=== PATIENT | female | born 1955 ===

== ENCOUNTER 2017-05-06 06:31 | Day surgery (SDC) | payer BC ==
[2017-04-29 09:47] VITALS: BMI 26.6
[2017-05-06] MEDS ORDERED: ceFAZolin IV 2 gm in Dextrose 1 GM/50 ML BAG IVPB ONE (08:03)
[2017-05-06] MEDS ORDERED: Midazolam 2 MG/2 ML VIAL ONE (08:20)
[2017-05-06] MEDS ORDERED: Propofol 10 mg/ml Inj (20 ML) ONE (08:20)
[2017-05-06] MEDS ORDERED: Rocuronium 10 mg/ml (5 ml) ONE (09:48)
[2017-05-06] MEDS ORDERED: Lactated Ringer's 1,000 ML IV ONE ×4 (09:55→14:30)
[2017-05-06] MEDS ORDERED: Phenylephrine 10 mg/ml Inj ONE (10:23)
[2017-05-06] MEDS ORDERED: ePHEDrine 50 mg/ml Inj ONE (10:23)
[2017-05-06] MEDS ORDERED: Rocuronium 10 mg/ml (10 ml) ONE (10:37)
[2017-05-06] MEDS ORDERED: Morphine 4 MG/ML VIAL ONE (11:22)
[2017-05-06] MEDS ORDERED: HYDROmorphone 0.5 mg/0.5 ml ISec IVP PRN (13:34)
--- NOTE | 2017-05-06 14:24 | RAD ---
PROCEDURE: Intraoperative Fluoroscopy. HISTORY: LT HIP ARTHROSCOPIC labral REPAIR FINDINGS: Fluoroscopic assistance was provided for left hip arthroscopic labral repair. Please refer to the operative report from Dr. MYRICK
[2017-05-06 15:35] VITALS: RESP 16
[2017-05-06 19:13] VITALS: BP 103/59; PULSE 57; TEMP 97.2; O2SAT 100
--- NOTE | 2017-05-06 22:06 | PCM.SURG1 ---
Surgeon's Initial Post Op Note - Surgeon's Notes Surgeon: Jaya Cee MD Computer Meteorologist: Joby Hui PA-C Type of Anesthesia: General Endo Pre-Operative Diagnosis: Left hip #1 labral tear. #2 synovitis. #3 greater trochanteric bursitis. #4 external snapping. #5 possible abductor tear Operative Findings: Left hip #1 labral tear (complex w/ area of deficient labrum anterior). #2 synovitis & hypertrophic capsulitis. #3 greater trochanteric bursitis. #4 external snapping/ITB tightness. #5 partial/stable abductor tear w/ tendonopathy Post-Operative Diagnosis: Left hip #1 labral tear (complex w/ area of deficient labrum anterior). #2 synovitis & hypertrophic capsulitis. #3 greater trochanteric bursitis. #4 external snapping/ITB tightness. #5 partial/stable abductor tear w/ tendonopathy Operation Performed: Left hip #1 Arthroscopic Labral repair (w/debridement). # 2 Arthroscopic synovectomy/capsulectomy/debridement. #3 Endoscopic greater trochanteric bursectomy. #4 Endoscopic ITB release. #5 Endoscopic evaluation of abductor tendons Specimen/Specimens Removed: specimen= none. complications= none. Implants= Arthrex 2.9 mm biocomposite push lock anchors x2, labral tape Estimated Blood Loss: EBL {In ML}: 3 Blood Products Given: N/A Drains Used: No Drains Post-Op Condition: Good Date of Surgery/Procedure: 05/06/17 Time of Surgery/Procedure: 14:00
--- NOTE | 2017-05-07 07:55 | OP ---
PROCEDURE DATE: 05/06/2017 PREOPERATIVE DIAGNOSES: Left hip: 1. Labral tear. 2. Synovitis. 3. Greater trochanteric bursitis. 4. External snapping/tight iliotibial band. 5. Possible abductor tear. POSTOPERATIVE DIAGNOSES: Left hip: 1. Labral tear (complex tear with a small area of deficient labrum anteriorly). 2. Synovitis and hypertrophic capsulitis. 3. Greater trochanteric bursitis. 4. External snapping/iliotibial band tightness. 5. Partial/stable abductor tear with tendinopathy. PROCEDURE: Left hip: 1. Arthroscopic labral repair (with concomitant debridement). 2. Arthroscopic synovectomy/capsulectomy/debridement. 3. Endoscopic greater trochanteric bursectomy. 4. Endoscopic iliotibial band release. 5. Endoscopic evaluation of abductor tendon insertion. SURGEON: Jaya Cee MD HABILITATION SPECIALIST: Joby Hui PA-C JUSTIFICATION FOR HABILITATION SPECIALIST: Joby Hui is a certified physician music library assistant whose skilled surgical services was an absolute necessity for successful completion of the procedure. He provided skilled surgical assistance with positioning of the patient, positioning of extremity, management of the surgical hendrickson, placement in hip distractor table and securing the patient safely as well as applying hip distraction safely, management of orthoscopic equipment, facilitating access to the hip joint, arthroscopic labral repair, arthroscopic debridement and capsulectomy, endoscopic evaluation of the abductor and iliotibial band release, wound closure. Joby Hui was present for the entire case and was an absolute necessity for successful completion of the procedure. TYPE OF ANESTHESIA: General endotracheal anesthesia. COMPLICATIONS: None. SPECIMENS: None. DRAINS: None. ESTIMATED BLOOD LOSS: 3 mL IMPLANTS: Arthrex 2.9 mm biocomposite PushLock anchors x2 for labral repair as well as LabralTape. DISPOSITION: The patient was extubated in satisfactory and stable condition and tolerated the procedure well. INDICATIONS FOR SURGERY: The patient is a 61-year-old female with no significant past medical history, who presented to the office for the first time under my care on 04/29/2016 with left hip, groin, greater trochanteric bursal pain, after a slip and fall. The pain significantly worsened over the past year under my care and she failed conservative treatment including greater trochanteric bursa injection in the office twice, intra-articular fluoroscopic guided cortisone mixture injection with re-concomitant greater trochanteric bursal injection on 01/07/2017 at [facility], multiple rounds of physical therapy, compound antiinflammatory pain cream, Mobic anti-inflammatory medication, and lifestyle modification. Over the past few months, she stated that the pain began to interfere with her ADLs. Once she underwent the intra-articular cortisone mixture injection and greater trochanteric bursa injection, she reported that she had near complete pain relief at both locations during the injections. The injections lasted about a month and the pain started to return. Pain was localized to the left hip, groin. Pain was worse with high flexion and internal rotation and with any extended period of sitting. Pain was also localized to the greater trochanteric bursa and lateral aspect of the hip with palpable external snapping that was reproducible at roll by the patient. She was unable to sleep on the left side due to this pain. She underwent MRI of the left hip prior to the injection in the form of an MR arthrogram which was performed at [facility] that was read as: 1. Chronically torn, scarred in labrum with partially detached superior and diffusely blunted anteriorly with chronic capsular injury and thinning of the acetabulum. 2. Tendinosis and chronic partial tear of the distal gluteus minimus and medius tendons. Tendinosis and chronic partial tear of the proximal common hamstring tendon. Trochanteric bursitis. Reread the MRI. She underwent MR arthrogram prior to the injection on 12/24/2016 at [facility] which was read as: 1. Chronically torn, small scarred labrum which is partially detached superiorly and diffusely blunted anteriorly. 2. Chronic capsular injury. 3. Chronic thinning of the acetabulum. 4. Tendinosis and chronic partial tear of the distal gluteus minimus and medius tendon. 5. Tendinosis and chronic partial tear of the proximal common hamstring tendon. 6. Trochanteric bursitis. The injection that was performed under fluoroscopic guidance on 01/07/2017 provided vital information about her prognosis and treatment options. She had complete resolution of her groin pain and was able to tolerate high flexion and internal rotation and extended periods of sitting and was able to sleep on her left side after the injections. Once the pain returns, and she had failed conservative management for almost one year, she was indicated for left hip arthroscopic labral repair versus debridement and all other indicated arthroscopic procedures, endoscopic greater trochanteric bursectomy, and iliotibial band release with evaluation of the abductor insertion and possible abductor repair. The risks, benefits, and alternatives to the procedure was discussed with length the patient with the risk including not limited to infection, neurovascular damage, development of blood clots including DVT and PE, development of chronic pain and disability, inability to return to preinjury level activity, need for further surgery, advanced chondrolysis and degenerative wear, failure of repair, heterotopic ossification, anesthesia reaction including , perioperative cardiac and pulmonary collapse. After answering all of her questions, the patient stated that she understood the risks and wished to proceed with surgery. On multiple office visits, the surgical animation videos and diagnoses animation videos and stated that she had a good handle on what the surgery was and her diagnosis. I reviewed at length with her the postop rehab protocol and she stated he understood the needs for compliance with the rehab protocol in order to maximize the chances of having successful outcome after surgery. She was fitted and placed in a hip abduction brace by an gas leak inspector and the brace was brought to the OR to be placed in postoperatively. She was referred to primary care physician for preoperative medical evaluation and pre-admission testing and the procedure was scheduled on 05/06/2017 at [facility]. PROCEDURE IN DETAIL: The patient was identified in the preoperative holding area and the left hip was marked for surgery. Once again as described above, the risks, benefits and alternatives of the procedure were discussed at length with the patient and informed consent was obtained. After brief discussion with anesthesia staff, perioperative IV antibiotics in the form of 2 g of Ancef were administered and the patient was brought to the operating room and placed on the well-padded operating table with all bony prominence, superficial neurovascular structures well-padded. The patient was placed under general anesthesia without difficulty or complication. The Arthrex hip distractor was attached to the table and the patient was brought into position with the peroneal post in position. A final time-out was done with the surgeon, anesthesia staff, and OR staff and all are in agreement with the patient, procedure to be done, and the extremity to be operated on prior to placement interaction. All bony prominences and superficial neurovascular structures well-padded. The left lower extremity was well-padded at the foot and ankle and placed in the traction boot. The right lower extremity was also placed in the traction boot as counterbalance. With a note made of the start of traction time, the left lower extremity was placed under traction and under fluoroscopic imaging, it was confirmed that the hip was distracted enough to allow for access for arthroscopic equipment and arthroscopic intra-articular portion of the procedure. The left hip was then prepped and draped in standard sterile fashion. Long spinal needle was then used to access the hip joint. The tip of the greater trochanter was palpated and marked out. The tip of the ASIS was palpated and marked out. A line was drawn from the ASIS down the long axis of the leg and a line was drawn from the tip of the greater trochanter across the long axis of the leg. Care was taken to stay in the upper outer quadrant to avoid any neurovascular injury with placement of portals. We started with placement of the lateral portal with the spinal needle advanced at the anterior aspect of the tip of the greater trochanter from the lateral aspect of the hip joint across and embedded into the acetabulum. This was confirmed under fluoroscopic imaging. Sequential dilation was made after incision was made to skin down subcutaneous tissue and maintaining good hemostasis. Once sequential dilation was carried out under fluoroscopic imaging, the [place]/ cannula was then inserted over the guidewire and the arthroscopic camera was inserted. With air visualization only, the spinal needle was then advanced through the skin at optimal location for placement of the anterior portal. With inline that this was a labral repair case, the portal was placed a little distal to allow for access for drilling of the acetabular anchors. Same steps were repeated with sequential dilation after incision was made under fluoroscopic image conformation and direct visualization in the anterior aspect of the hip joints. Insufflation of arthroscopic fluid was begun and accessory cannula was inserted. With the use of the [place] semi blade, a capsulotomy was carried out connecting the anterior and the anterolateral portals. Once the capsulotomy was carried out to satisfaction, diagnostic arthroscopy was then carried out. Attention was then turned towards the central aspect of the hip joint and the ligamentum teres was evaluated and found to be intact with some mild inflammation. The labrum was then carefully evaluated as well as the acetabular cartilage which was found to be intact with no evidence of significant chondromalacia or full-thickness defect. The femoral head was evaluated and found to have good cartilage that was intact with no evidence of any significant degenerative wear or full-thickness cartilage defects or chondromalacia. Attention was then turned towards the evaluation of the labrum and indeed do as chronic scarred in degenerative tearing and complex tearing of the labrum starting at the superior 12 o'clock position extending to the anterior 4 o'clock position with a small area that was appeared to be a detached deficit of labrum completely. The capsule was significantly hypertrophic with capsulitis throughout the hip joint. With the use of arthroscopic shaver and radiofrequency ablation, a capsulectomy was carried out to help with the tightness of the capsulitis and provide pain relief for the patient. There was also significant synovitis throughout the hip joint which was carefully debrided while maintaining good hemostasis. With the use of arthroscopic probe, the labral tear was carefully evaluated and it was found that the detached part at the anterior aspect of the labrum could be repaired and strengthen while incorporating some of the detached capsular tissue as well for support. With the use of the [employer] passer, a labral tear from Arthrex was passed around the labrum that was detached at the anterior aspect at approximately 3 o'clock position. The drill guide was then placed and positioned and the drill path for the PushLock anchor was drilled while focusing on the acetabular cartilage surface and ensuring that there was no intra-articular breakthrough. The labral tear that was passed around the labrum was then fitted to the PushLock anchor and the PushLock anchor was placed into position and successful labral repair at the 3 o'clock position was carried out. These steps were then repeated at the 1 o'clock position which resulted in a stable labral repair at the anterior and anterosuperior aspects of the labrum. The labral repair was carefully evaluated with the arthroscopic probe and we were very satisfied with the result. Final debridement of the capsule and synovitis was carried out and the traction was removed with total traction time of 100 minutes. The hip was taken though a range of motion under the direct fluoroscopic visualization and there was no evidence of CAM lesion or further peripheral compartment work. Once the intra-articular portion of the procedure was completed, all arthroscopic fluids and debris were removed and attention was then turned towards treatment of the greater trochanteric bursitis and tight iliotibial band. With the use of spinal needle, the area of the greater trochanter was palpated under direct fluoroscopic visualization and a stab incision was made through skin down subcutaneous tissue, maintaining good hemostasis at the ideal entry point for the endoscopic portion of the case. We were able to utilize the lateral portal as the superior portal for the greater trochanter bursectomy and iliotibial band release and we were successful in creating the inferior portal. We switched to the 30 degree camera and after blunt trocar insertion and clamp insertion, the arthroscopic camera was inserted and insufflation of arthroscopic fluid was begun below the level of the iliotibial band. The abductor tendons were identified and evaluated with the arthroscopic probe and were found to be intact and we worked away from deep 2 superficial. The level of the iliotibial band was identified after undergoing a endoscopic bursectomy with the use of arthroscopic shaver and radiofrequency ablation. With the use of the radiofrequency ablation, an iliotibial band release was carried out both longitudinal with the fibers of the iliotibial band and also in a zigzag pattern to ensure that the release was successful as the iliotibial band fibers were found to be very tight and symptomatic. With the use of arthroscopic shaver and radiofrequency ablation, a greater trochanteric bursectomy was carried out with maintaining good hemostasis. With the use of the arthroscopic probe, the abductor tendon insertions were evaluated closely in both the gluteus minimus and gluteus medius insertions were found to be intact with some partial tearing, but stable overall. With the use of arthroscopic shaver and radiofrequency ablation, the partial tearing was debrided and decision was mad not to proceed with any repair as there was no full-thickness abductor tear. The iliotibial band release was visualized once again and the hip was taken through external and internal rotation and external snapping had ceased. Once all of the endoscopic work was completed satisfaction, good hemostasis was achieved and arthroscopic fluid was evacuated as well as debrided and all 3 portals were re-approximated with 2-0 Vicryl suture for deep tissue and followed by 3-0 Monocryl suture for skin. Sterile dressings were applied. The hip abductor brace that was fitted for the patient prior to surgery was then placed onto the patient successfully and the patient was then extubated from general anesthesia and transferred to PACU in stable condition and tolerated the procedure well. DISPOSITION: The patient will be discharged to home once he is recovered from anesthesia. She will be strict nonweightbearing to the left lower extremity and will work with physical therapy to determine if she will need a walker to perform this. She will follow up in the office at [facility] within one week and already has her postoperative appointment set up. She will be referred to start physical therapy and work on regaining range of motion. She will be given a prescription for Percocet for pain control. She will be given a prescription for indomethacin as HO prophylaxis. She has also given a prescription for Lovenox as DVT prophylaxis in the form of 40 mg subcutaneous injection once daily, start postoperative day #1 for at least 2 weeks. She will contact me with any questions or concerns. She should keep the dressing and brace on at all times and clean, dry, and intact until she follows up in the office at [facility]. Jaya Cee MD
== END 2017-05-06 19:10 | disposition home or self-care (01) ==
LOC: C.SDS 06:31
PROVIDERS: ATTEND Student in an Organized Health Care Education/Training Program
DX: M70.62 Trochanteric bursitis, left hip (principal); M24.152 Other articular cartilage disorders, left hip; M67.852 Other specified disorders of synovium, left hip; S76.312D Strain of muscle, fascia and tendon of the posterior muscle group at thigh level, left thigh, subsequent encounter; X58.XXXD Exposure to other specified factors, subsequent encounter
CPT/HCPCS: 27036; 27062; 27305; 29863; 97116; 97161; G8978; G8979; G8980; J0171; J0690; J1170; J2001; J2250; J2270; J2370; J2405; J2704; J2765; J3010; J7120